=== PATIENT | female | born 1955 | race Two or more races ===

== ENCOUNTER 2016-12-20 15:17 | Emergency (ER) | payer MEDICAID ==
[~2016-12-20] VITALS: Ht 152.4 cm; Wt 99.8 kg
[2016-12-20 17:09] LABS: Anion Gap 11 (5-15); BUN/Creatinine Ratio 17.8; Blood Urea Nitrogen 73 mg/dL (7-18); Calcium 8.3 mg/dL (8.5-10.1); Carbon Dioxide 26 mmol/L (21-32); Chloride 103 mmol/L (98-107); GFR African American 14 mL/min; GFR Non-African American 12 mL/min; Glucose 291 mg/dL (74-106); Magnesium 2.6 mg/dL (1.6-2.6); Sodium 140 mmol/L (136-145)
[2016-12-20 18:02] LABS: Basophils # (auto) 0 uL; Basophils % (auto) 0.3 % (0.0-2.0); CONDITION Y; Eosinophils # (auto) 0.2 uL; Eosinophils % (auto) 1.5 % (0.0-7.0); Hematocrit 35.9 % (36.0-46.0); Lymphocytes # (auto) 2.3 uL; Lymphocytes % (auto) 20.3 % (10.0-50.0); Mean Corpuscular Hgb Conc. 33.5 g/dL (32.0-36.0); Mean Corpuscular Volume 95.8 fL (80.0-100.0); Mean Platelet Volume 8.4 fL (7.4-10.4); Monocytes # (auto) 0.8 uL; Monocytes % (auto) 7.1 % (0.0-12.0); Neutrophils # (auto) 8.1 uL; Neutrophils % (auto) 70.8 % (37.0-80.0); Platelet Count (auto) 253 10^3/uL (140-450); Red Cell Distribution Width 12.9 % (11.6-16.0); White Blood Cell 11.4 10^3/uL (4.4-10.8)
[2016-12-21 05:26] VITALS: BP 165/66
== END 2016-12-21 05:44 | disposition home or self-care (01) ==
LOC: ER 15:24
DX: E11.65 Type 2 diabetes mellitus with hyperglycemia (principal); E11.22 Type 2 diabetes mellitus with diabetic chronic kidney disease; I12.0 Hypertensive chronic kidney disease with stage 5 chronic kidney disease or end stage renal disease; N18.6 End stage renal disease; Z99.2 Dependence on renal dialysis
CPT/HCPCS: 36415; 80048; 83735; 84484; 85025; 93005

== ENCOUNTER 2019-09-05 08:24 | Inpatient (IN) | payer MEDICAID, OTHER ==
[~2019-09-05] VITALS: Ht 165.1 cm; Wt 114.4 kg
[2019-09-05] VITALS (46 sets, daily range): BP systolic 80–203; BP diastolic 29–79
[2019-09-05] MEDS ORDERED: IPRATROPIUM BROM 0.5 MG/2.5ML INH SOL HHN ONE (08:45)
[2019-09-05] MEDS ORDERED: ALBUTEROL SULF 2.5 MG/0.5ML(0.5%) NEB SOLN HHN ONE (08:45)
[2019-09-05] MEDS: MIDAZOLAM DRIP 50 mg/50mL 50 ML IV SCH ×2 (08:45→20:30)
[2019-09-05] MEDS: NOREPINEPHRINE 8 MG/250ML KIT 250 ML IV SCH ×2 (08:50→20:30)
[2019-09-05] MEDS ORDERED: NOREPINEPHRINE 8 MG/250ML KIT 250 ML IV ONE (08:52)
[2019-09-05] MEDS ORDERED: MIDAZOLAM DRIP 50 mg/50mL 50 ML IV ONE (08:52)
[2019-09-05 09:03] LABS: Hematocrit 30.4 % (36.0-46.0); Hemoglobin 8.9 g/dL (12.2-16.2); Mean Corpuscular Hemoglobin 31.2 pg (28.0-32.0); Mean Corpuscular Hgb Conc. 29.2 g/dL (32.0-36.0); Mean Corpuscular Volume 106.7 fL (80.0-100.0); Platelet Count (auto) 347 10^3/uL (140-450); Red Blood Cells 2.85 10^6/uL (4.0-5.20); Red Cell Distribution Width 17.5 % (11.8-14.3)
[2019-09-05 09:07] LABS: White Blood Cell 37.2 10^3/uL (4.4-10.8)
[2019-09-05 09:08] LABS: Basophils % (manual) 0 (0.0-2.0); Blast Cells 0; Eosinophils % (manual) 0 (0-7); Myelocytes % 0; Promyelocytes % 0; Reactive Lymphocytes 0
[2019-09-05 09:08] LABS: Alcohol, Urine < 3.0 mg/dL (0-5); Amphetamine Screen, Urine NEGATIVE (NEGATIVE); Barbiturate Scree,Urine NEGATIVE (NEGATIVE); Benzodiazephine Screen, Urine NEGATIVE (NEGATIVE); Cannabinoid Screen, Urine NEGATIVE (NEGATIVE); Cocaine Screen, Urine NEGATIVE (NEGATIVE)
[2019-09-05] MEDS ORDERED: SODIUM BICARBONATE 8.4% INJ 50ML SYRINGE ONE (09:10)
[2019-09-05] MEDS ORDERED: EPINEPHrine HCL 1 MG/10 ML SYRG ONE (09:11)
[2019-09-05] MEDS ORDERED: PHENYLEPHRINE IV 250 ML IV ONE (09:13)
[2019-09-05 09:16] LABS: Opiate Scree,Urine POSITIVE (NEGATIVE); Phencyclidine Screen, Urine NEGATIVE (NEGATIVE)
[2019-09-05 09:17] LABS: Albumin 1.5 g/dL (3.4-5.0); Magnesium 2.6 mg/dL (1.6-2.6); Potassium 3.7 mmol/L (3.5-5.1)
[2019-09-05 09:23] LABS: BUN/Creatinine Ratio 8.8; Bilirubin, Total 0.3 mg/dL (0.2-1.0); Calcium 9.8 mg/dL (8.5-10.1); Total Protein 5.2 g/dL (6.4-8.2)
[2019-09-05] MEDS ORDERED: levoFLOXacin 500MG 100 ML IV ONE (09:45)
[2019-09-05] MEDS: PHENYLEPHRINE IV 250 ML IV SCH (09:55)
[2019-09-05 10:26] LABS: Lactic Acid w/Reflex 8.8 mmol/L (0.4-2.0)
[2019-09-05 10:47] LABS: Band Neutrophils % (manual) 7; Lymphocytes % (manual) 29 (10.0-50.0); Metamyelocytes % 1; Monocytes % (manual) 9 (0-12)
[2019-09-05] MEDS ORDERED: PIPERACILLIN-TAZOB 2.25GM 50 ML IV ONE (11:00)
[2019-09-05] MEDS ORDERED: MORPHINE SULF INJ 2 MG/ML SYRINGE 1ML IV PRN (11:00)
[2019-09-05] MEDS ORDERED: SODIUM CHLORIDE 0.9% 3,800 ML IV ONE (11:00)
[2019-09-05] MEDS ORDERED: DEXTROSE (50%) 50ML SYRG IV PRN (11:00)
[2019-09-05] MEDS ORDERED: VANCOMYCIN PER PHARMACY 0 MG IV SCH (11:00)
[2019-09-05] MEDS ORDERED: AZITHROMYCIN 500MG/ 250ML 250 ML IV ONE (11:00)
[2019-09-05] MEDS ORDERED: ALBUTEROL SULF 2.5 MG/0.5ML(0.5%) NEB SOLN NEB PRN (11:00)
[2019-09-05] MEDS ORDERED: NITROGLYCERIN 0.4 MG SL TAB SL PRN (11:00)
[2019-09-05] MEDS ORDERED: VANCOMYCIN 1GM/250ML 250 ML IV ONE ×3 (11:45→15:00)
[2019-09-05] MEDS ORDERED: IOHEXOL 300 MG/ML 100ML BOTTLE IJ ONE (11:53)
[2019-09-05] MEDS: IPRATROPIUM BROM 0.5 MG/2.5ML INH SOL NEB SCH ×2 (12:00→18:16)
[2019-09-05] MEDS: ACCU-CHEK COMFORT CURVE STRIP VI SCH ×2 (12:00→18:00)
[2019-09-05] MEDS: InsuLIN REG 1unit/0.01ml Soln (100units/ml) SC SCH ×2 (12:00→18:30)
[2019-09-05] MEDS ORDERED: PIPERACILLIN-TAZOB 0.75 GM in D5W 5% 50 ML IV SCH (12:00)
[2019-09-05] MEDS: ALBUTEROL SULF 2.5 MG/0.5ML(0.5%) NEB SOLN NEB SCH ×2 (12:00→18:16)
[2019-09-05] MEDS ORDERED: VANCOMYCIN 500 MG in D5W 5% 100 ML IV ONE (12:45)
[2019-09-05] MEDS ORDERED: SODIUM BICARBONATE 8.4 % INJ 50ML VIAL IV ONE ×2 (13:30→13:35)
[2019-09-05] MEDS ORDERED: ENOXAPARIN SOD 100 MG/1 ML SYRINGE SC ONE (14:30)
[2019-09-05 15:22] LABS: INR 1.17 (0.9-1.15)
[2019-09-05] MEDS ORDERED: CALCIUM CHL(10%) 100MG/ML 10ML VIAL IV ONE (17:55)
[2019-09-05] MEDS ORDERED: SODIUM BICARBONATE 8.4% INJ 50ML SYRINGE IV ONE (17:55)
[2019-09-05] MEDS ORDERED: EPINEPHrine HCL 1 MG/10 ML SYRG IV ONE (17:55)
[2019-09-05] MEDS: HYDROCORTISONE SOD SUCC 100 MG/2ML INJ VIAL IV SCH (18:10)
[2019-09-05] MEDS ORDERED: DOCU100T15 PO (20:47)
[2019-09-05] MEDS ORDERED: MID10T GT (20:47)
[2019-09-05] MEDS ORDERED: ASPI325T25 PO (20:47)
[2019-09-05] MEDS ORDERED: GABA100C9 PO (20:47)
[2019-09-05] MEDS ORDERED: FURO40TA4 PO (20:47)
[2019-09-05] MEDS ORDERED: PANT40TA2 PO (20:47)
[2019-09-05] MEDS ORDERED: B-COTAB10 OR (20:47)
[2019-09-05] MEDS ORDERED: SIMV-8 PO ×2 (20:47)
[2019-09-05] MEDS ORDERED: MIDO10TA10 PO (20:47)
[2019-09-05] MEDS ORDERED: SIMV10TA84 PO (20:47)
[2019-09-05] MEDS ORDERED: LACT10PA2 PO (20:47)
[2019-09-05] MEDS ORDERED: OMEP20TA PO (20:47)
[2019-09-05] MEDS ORDERED: METO-158 PO (20:47)
[2019-09-05] MEDS ORDERED: CALC667C5 PO (20:47)
[2019-09-05] MEDS ORDERED: LORA-622 PO (20:47)
[2019-09-05] MEDS ORDERED: LEVO-28 PO (20:47)
[2019-09-05] MEDS ORDERED: METO5TAB2 PO (20:47)
[2019-09-05] MEDS ORDERED: INSUINJ2 SC (20:47)
[2019-09-05] MEDS: PIPERACILLIN-TAZOB 2.25GM 50 ML IV SCH (21:50)
[2019-09-06] VITALS (92 sets, daily range): BP systolic 90–201; BP diastolic 4–71
[2019-09-06] MEDS: HYDROCORTISONE SOD SUCC 100 MG/2ML INJ VIAL IV SCH ×4 (00:16→18:30)
[2019-09-06] MEDS: ACCU-CHEK COMFORT CURVE STRIP VI SCH ×4 (00:23→20:08)
[2019-09-06] MEDS: InsuLIN REG 1unit/0.01ml Soln (100units/ml) SC SCH ×4 (00:25→20:27)
[2019-09-06] MEDS: ALBUTEROL SULF 2.5 MG/0.5ML(0.5%) NEB SOLN NEB SCH ×4 (00:32→18:47)
[2019-09-06] MEDS: IPRATROPIUM BROM 0.5 MG/2.5ML INH SOL NEB SCH ×4 (00:32→18:47)
[2019-09-06] MEDS: MIDAZOLAM DRIP 50 mg/50mL 50 ML IV SCH ×2 (01:01→06:22)
[2019-09-06 04:23] LABS: Hematocrit 28.4 % (36.0-46.0); Mean Corpuscular Hemoglobin 31.3 pg (28.0-32.0); Mean Corpuscular Hgb Conc. 31.5 g/dL (32.0-36.0); Mean Corpuscular Volume 99.3 fL (80.0-100.0); Platelet Count (auto) 317 10^3/uL (140-450); Red Blood Cells 2.86 10^6/uL (4.0-5.20); White Blood Cell 23.8 10^3/uL (4.4-10.8)
[2019-09-06 04:29] LABS: Basophils % (manual) 0 (0.0-2.0); Blast Cells 0; Eosinophils % (manual) 0 (0-7); Metamyelocytes % 0; Myelocytes % 0; Promyelocytes % 0; Reactive Lymphocytes 0
[2019-09-06 04:39] LABS: Albumin 1.7 g/dL (3.4-5.0); BUN/Creatinine Ratio 10.2
[2019-09-06 04:43] LABS: Bilirubin, Total 0.5 mg/dL (0.2-1.0); Total Protein 6.1 g/dL (6.4-8.2)
[2019-09-06 05:35] LABS: Band Neutrophils % (manual) 16; Lymphocytes % (manual) 8 (10.0-50.0); Monocytes % (manual) 2 (0-12)
[2019-09-06] MEDS: PHENYLEPHRINE IV 250 ML IV SCH ×3 (09:34→19:54)
[2019-09-06] MEDS ORDERED: ENOXAPARIN SOD 30 MG/0.3 ML SYRINGE SC SCH (10:00)
[2019-09-06] MEDS: PIPERACILLIN-TAZOB 2.25GM 50 ML IV SCH ×2 (10:23→22:10)
[2019-09-06] MEDS: AZITHROMYCIN 500MG/ 250ML 250 ML IV SCH (10:24)
[2019-09-06] MEDS: ENOXAPARIN SOD 100 MG/1 ML SYRINGE SC SCH (10:24)
[2019-09-06] MEDS: ASPirin 81 mg TAB NG SCH (10:25)
[2019-09-06 10:51] LABS: Urine Bacteria NONE SEEN /hpf (None Seen); Urine Blood Negative /uL (Negative); Urine Specific Gravity 1.023 (1.001-1.035); Urine WBC 1 /hpf (0 - 5)
[2019-09-06] MEDS: PROPOFOL 100 ML IV SCH (14:00)
[2019-09-06] MEDS: fentaNYL Drip 2500mCg/250mlNS 250 ML IV SCH (14:08)
[2019-09-06] MEDS ORDERED: DEXTROSE (50%) 50ML SYRG IV PRN (14:45)
[2019-09-06] MEDS ORDERED: VANCOMYCIN 500 MG in D5W 5% 100 ML IV ONE (18:00)
[2019-09-06] MEDS ORDERED: ATROPINE SULF 1 MG/10ml SYR IV ONE (18:43)
[2019-09-07] VITALS (100 sets, daily range): BP systolic 83–149; BP diastolic 35–60
[2019-09-07] MEDS: ACCU-CHEK COMFORT CURVE STRIP VI SCH ×6 (00:11→21:20)
[2019-09-07] MEDS: HYDROCORTISONE SOD SUCC 100 MG/2ML INJ VIAL IV SCH ×5 (00:11→23:56)
[2019-09-07] MEDS: InsuLIN REG 1unit/0.01ml Soln (100units/ml) SC SCH ×6 (00:18→21:21)
[2019-09-07] MEDS: ALBUTEROL SULF 2.5 MG/0.5ML(0.5%) NEB SOLN NEB SCH ×4 (00:29→18:39)
[2019-09-07] MEDS: IPRATROPIUM BROM 0.5 MG/2.5ML INH SOL NEB SCH ×4 (00:29→18:39)
[2019-09-07] MEDS: PHENYLEPHRINE IV 250 ML IV SCH ×3 (02:55→19:35)
[2019-09-07] MEDS: PROPOFOL 100 ML IV SCH (03:07)
[2019-09-07 04:29] LABS: Red Cell Distribution Width 16.2 % (11.8-14.3)
[2019-09-07 04:34] LABS: Hematocrit 26.7 % (36.0-46.0); Hemoglobin 8.5 g/dL (12.2-16.2); Mean Corpuscular Hemoglobin 30.9 pg (28.0-32.0); Mean Corpuscular Hgb Conc. 31.7 g/dL (32.0-36.0); Mean Corpuscular Volume 97.4 fL (80.0-100.0); Platelet Count (auto) 269 10^3/uL (140-450); Red Blood Cells 2.74 10^6/uL (4.0-5.20); White Blood Cell 25.2 10^3/uL (4.4-10.8)
[2019-09-07 04:38] LABS: Basophils % (manual) 0 (0.0-2.0); Blast Cells 0; Eosinophils % (manual) 0 (0-7); Monocytes % (manual) 0 (0-12); Promyelocytes % 0; Reactive Lymphocytes 0
[2019-09-07 04:48] LABS: BUN/Creatinine Ratio 10.7; Calcium 8.3 mg/dL (8.5-10.1)
[2019-09-07 06:06] LABS: Band Neutrophils % (manual) 22; Lymphocytes % (manual) 9 (10.0-50.0); Metamyelocytes % 2; Myelocytes % 1
[2019-09-07] MEDS: NOREPINEPHRINE 8 MG/250ML KIT 250 ML IV SCH (09:00)
[2019-09-07] MEDS: ENOXAPARIN SOD 100 MG/1 ML SYRINGE SC SCH (09:41)
[2019-09-07] MEDS: AZITHROMYCIN 500MG/ 250ML 250 ML IV SCH (09:41)
[2019-09-07] MEDS: PIPERACILLIN-TAZOB 2.25GM 50 ML IV SCH ×2 (09:41→22:20)
[2019-09-07] MEDS: ASPirin 81 mg TAB NG SCH (09:41)
[2019-09-07] MEDS ORDERED: FAMOTIDINE (10MG/ML) 2ML VL IV SCH (10:00)
[2019-09-07] MEDS ORDERED: VANCOMYCIN 1GM/250ML 250 ML IV ONE (11:00)
[2019-09-07] MEDS ORDERED: VANCOMYCIN 500 MG in D5W 5% 100 ML IV ONE (11:00)
[2019-09-07] MEDS: fentaNYL Drip 2500mCg/250mlNS 250 ML IV SCH (13:29)
[2019-09-07] MEDS ORDERED: ATROPINE SULF 1 MG/10ml SYR IV ONE (16:56)
[2019-09-08] VITALS (67 sets, daily range): BP systolic 58–165; BP diastolic 13–69
[2019-09-08] MEDS: ACCU-CHEK COMFORT CURVE STRIP VI SCH ×4 (00:08→11:49)
[2019-09-08] MEDS: InsuLIN REG 1unit/0.01ml Soln (100units/ml) SC SCH ×4 (00:11→11:49)
[2019-09-08] MEDS: ALBUTEROL SULF 2.5 MG/0.5ML(0.5%) NEB SOLN NEB SCH ×2 (00:26→06:55)
[2019-09-08] MEDS: IPRATROPIUM BROM 0.5 MG/2.5ML INH SOL NEB SCH ×2 (00:26→06:55)
[2019-09-08] MEDS: PHENYLEPHRINE IV 250 ML IV SCH (03:55)
[2019-09-08] MEDS: HYDROCORTISONE SOD SUCC 100 MG/2ML INJ VIAL IV SCH (05:37)
[2019-09-08 06:26] LABS: Hematocrit 28.1 % (36.0-46.0); Hemoglobin 9.1 g/dL (12.2-16.2); Mean Corpuscular Hemoglobin 31.8 pg (28.0-32.0); Mean Corpuscular Hgb Conc. 32.5 g/dL (32.0-36.0); Mean Corpuscular Volume 97.9 fL (80.0-100.0); Platelet Count (auto) 239 10^3/uL (140-450); Red Blood Cells 2.87 10^6/uL (4.0-5.20); Red Cell Distribution Width 15.8 % (11.8-14.3); White Blood Cell 23.1 10^3/uL (4.4-10.8)
[2019-09-08 06:46] LABS: Band Neutrophils % (manual) 0; Basophils % (manual) 0 (0.0-2.0); Blast Cells 0; Eosinophils % (manual) 0 (0-7); Metamyelocytes % 0; Myelocytes % 0; Promyelocytes % 0; Reactive Lymphocytes 0
[2019-09-08 06:47] LABS: Potassium 4.6 mmol/L (3.5-5.1)
[2019-09-08 06:58] LABS: Albumin 1.9 g/dL (3.4-5.0); BUN/Creatinine Ratio 11.9; Calcium 8.4 mg/dL (8.5-10.1); Magnesium 2.5 mg/dL (1.6-2.6)
[2019-09-08 07:03] LABS: Bilirubin, Total 0.4 mg/dL (0.2-1.0)
[2019-09-08] MEDS ORDERED: SODIUM CHL 0.9% 1000 ML BAG XX ONE (07:30)
[2019-09-08 08:03] LABS: Lymphocytes % (manual) 8 (10.0-50.0); Monocytes % (manual) 7 (0-12)
[2019-09-08] MEDS: NOREPINEPHRINE 8 MG/250ML KIT 250 ML IV SCH (09:00)
[2019-09-08] MEDS: ASPirin 81 mg TAB NG SCH (10:00)
[2019-09-08] MEDS ORDERED: NALOXONE HCL 0.4 MG/ML VIAL IV ONE (10:00)
[2019-09-08] MEDS ORDERED: MIDAZOLAM HCL 1MG/1ML-2 ML VIAL IV ONE (10:00)
[2019-09-08] MEDS: ENOXAPARIN SOD 100 MG/1 ML SYRINGE SC SCH (10:00)
[2019-09-08] MEDS ORDERED: FLUMAZENIL 0.1 MG/ML INJ 10ML MDV IV ONE (10:00)
[2019-09-08] MEDS ORDERED: fentaNYL CITRATE 100 MCG/2 ML VL IV ONE (10:00)
[2019-09-08] MEDS ORDERED: LIDOCAINE 2%HCL (LOCAL ANESTH.) INJ 20ML MDV ONE (10:09)
[2019-09-08] MEDS ORDERED: NALOXONE HCL 0.4 MG/ML VIAL ONE ×2 (10:13→10:14)
[2019-09-08] MEDS ORDERED: ALBUMIN 25% 100 ML IV ONE (14:00)
[2019-09-08] MEDS ORDERED: AMIODARONE HCL 900 MG IV ONE (16:13)
[2019-09-08] MEDS ORDERED: VANCOMYCIN 500 MG in D5W 5% 100 ML IV ONE (17:00)
[2019-09-08] MEDS ORDERED: EPINEPHrine HCL 1 MG/10 ML SYRG IV ONE (18:09)
[2019-09-08] MEDS ORDERED: SODIUM BICARBONATE 8.4% INJ 50ML SYRINGE IV ONE (18:09)
[2019-09-08] MEDS ORDERED: EPOETIN ALFA 4,000 UNIT/ML VL SC ONE (21:00)
== END 2019-09-08 18:10 | disposition expired | DRG 871 ==
LOC: ER 08:24 → EDBD 08:24 → ICU WEST 08:25
PROVIDERS: ADMIT Internal Medicine; ATTEND Internal Medicine Geriatric Medicine
PROC: 5A1945Z Respiratory Ventilation, 24-96 Consecutive Hours (ICD-10-PCS; principal; 2019-09-05)
PROC: 0BH17EZ Insertion of Endotracheal Airway into Trachea, Via Natural or Artificial Opening (ICD-10-PCS; 2019-09-05)
PROC: 5A12012 Performance of Cardiac Output, Single, Manual (ICD-10-PCS; 2019-09-05)
PROC: 02HV33Z Insertion of Infusion Device into Superior Vena Cava, Percutaneous Approach (ICD-10-PCS; 2019-09-05)
PROC: 5A1D70Z Performance of Urinary Filtration, Intermittent, Less than 6 Hours Per Day (ICD-10-PCS; 2019-09-08)
PROC: 0W9H3ZZ Drainage of Retroperitoneum, Percutaneous Approach (ICD-10-PCS; 2019-09-08)
DX: A41.9 Sepsis, unspecified organism (principal); G93.41 Metabolic encephalopathy; J96.01 Acute respiratory failure with hypoxia; R65.21 Severe sepsis with septic shock; N18.6 End stage renal disease; K68.19 Other retroperitoneal abscess; J18.9 Pneumonia, unspecified organism; I21.4 Non-ST elevation (NSTEMI) myocardial infarction; I13.2 Hypertensive heart and chronic kidney disease with heart failure and with stage 5 chronic kidney disease, or end stage renal disease; I16.1 Hypertensive emergency; G93.1 Anoxic brain damage, not elsewhere classified; A18.01 Tuberculosis of spine; M46.26 Osteomyelitis of vertebra, lumbar region; Z68.42 Body mass index [BMI] 45.0-49.9, adult; Z66 Do not resuscitate; I46.9 Cardiac arrest, cause unspecified; D64.9 Anemia, unspecified; E11.51 Type 2 diabetes mellitus with diabetic peripheral angiopathy without gangrene; E66.01 Morbid (severe) obesity due to excess calories; I48.91 Unspecified atrial fibrillation; I50.9 Heart failure, unspecified; E11.22 Type 2 diabetes mellitus with diabetic chronic kidney disease; E78.5 Hyperlipidemia, unspecified; Z83.3 Family history of diabetes mellitus; Z86.73 Personal history of transient ischemic attack (TIA), and cerebral infarction without residual deficits; Z90.49 Acquired absence of other specified parts of digestive tract; Z99.2 Dependence on renal dialysis; Z51.5 Encounter for palliative care
CPT/HCPCS: 10022; 36415; 36600; 70450; 71045; 71250; 72131; 74176; 74177; 77012; 80048; 80053; 80202; 80307; 81001; 82140; 82550; 82805; 82962; 83036; 83605; 83735; 83880; 84484; 85007; 85027; 85610; 87040; 87070; 87081; 87086; 87205; 87804; 90935; 92950; 93005; 93306; 94002; 94003; 94640; 94644; 96365; 99291; 99292; A4618; G0378; J1815; J1956; J2250; J2543; J2704; J3490; J7060; P9047